=== PATIENT | male | born 1965 | race Caucasian/White ===

== ENCOUNTER 2021-02-05 14:54 | Emergency (ER) | payer OTHER ==
[~2021-02-05] VITALS: Ht 180.3 cm; Wt 81.7 kg
[~2021-02-05 14:54] MED LIST: FLOMAX0.4 MG PO; NEXIUM20 M1 PO; PERCOCET 5-3251 EACH PO; ZOFRAN ODT4 MG PO
[2021-02-05] MEDS ORDERED: SIMVASTATIN80 MG PO (15:11)
[2021-02-05] MEDS ORDERED: CEPHALEXIN500 MG PO (16:55)
[2021-02-05 17:18] VITALS: BP 109/70
== END 2021-02-05 17:22 | disposition home or self-care (01) ==
LOC: M.ERS 14:54
DX: S71.112A Laceration without foreign body, left thigh, initial encounter (principal); K21.9 Gastro-esophageal reflux disease without esophagitis; E78.00 Pure hypercholesterolemia, unspecified; W26.8XXA Contact with other sharp object(s), not elsewhere classified, initial encounter; Y93.89 Activity, other specified; Y92.89 Other specified places as the place of occurrence of the external cause; Y99.8 Other external cause status